=== PATIENT | female | born 1965 | race Caucasian/White ===

== ENCOUNTER → 2017-01-28 | Outpatient (CLI) | payer OTHER ==
[~2017-01-28] MED LIST: CLR10 PO; CZR50 PO; HYDC25 PO; OXYC-57 PO; POTA-335 PO
[2017-01-28 17:45] LABS: ALT/SGPT 21 U/L (12-78); AST/SGOT 14 U/L (15-37); BLOOD UREA NITROGEN 11 mg/dl (7-18); BUN/CREATININE RATIO 16.7 (10-20); CALCIUM 8.8 mg/dl (8.5-10.1); CARBON DIOXIDE 28 mmol/L (21-32); CHLORIDE 105 mmol/L (98-107); CREATININE 0.65 mg/dl (0.60-1.20); GLUCOSE 79 mg/dl (70-99); POTASSIUM 4.1 mmol/L (3.5-5.1); SODIUM 141 mmol/L (136-145)
[2017-01-28 17:56] LABS: ALB/GLOB RATIO 0.9 (0.9-2); ALKALINE PHOSPHATASE 91 U/L (45-117); CHOLESTEROL 201 mg/dl (0-200); CHOLESTEROL/HDL RATIO 3.5; HDL CHOLESTEROL 57 mg/dl; LDL CHOLESTEROL CALCULATED 117 mg/dl; TRIGLYCERIDES 134 mg/dl (0-150); VERY LOW DENSITY LIPOPROT CALC 27 mg/dl
[2017-01-28 18:18] LABS: HEMATOCRIT 41.7 % (37-47); MEAN CELL VOLUME 86.2 fL (80-100); MEAN CORPUSCULAR HEMOGLOBIN 28.9 pg (25-34); MEAN CORPUSCULAR HGB CONC 33.6 g/dl (32-36); MEAN PLATELET VOLUME 10.9 fL (7.4-10.4); PLATELET COUNT 244 K/uL (130-400); RED BLOOD COUNT 4.84 M/uL (4.2-5.4); WHITE BLOOD COUNT 8.59 K/uL (4.8-10.8)
== END | disposition home or self-care (01) ==
LOC: C.LABBFT 15:44
PROVIDERS: ATTEND Physician Assistant Medical
DX: I10 Essential (primary) hypertension (principal)

== ENCOUNTER 2020-08-07 17:22 | Inpatient (IN) ==
[2020-08-07] MEDS ORDERED: ALBUT/IPRATROP 3MG/0.5MG NEB 3 ML VIAL NEB STA (18:14)
[2020-08-07 19:17] LABS: Basophils # (auto) 0.01 K/uL (0-0.2); Basophils % (auto) 0.1 %; Eosinophils % (auto) 2.1 %; Hematocrit (blood only) 45.6 % (37-47); Hemoglobin 14.7 g/dL (12.0-16.0); Immature Granulocytes # (auto) 0.02 K/uL (0.00-0.02); Immature Granulocytes % (auto) 0.2 %; Lymphocytes # (auto) 2.57 K/uL (1.2-3.4); Lymphocytes % (auto) 27.1 %; Mean Corpuscular Hemoglobin 28.3 pg (25-34); Mean Corpuscular Hgb Conc 32.2 g/dL (32-36); Mean Corpuscular Volume 87.9 fL (80-100); Mean Platelet Volume 10.2 fL (7.4-10.4); Monocytes # (auto) 0.63 K/uL (0.11-0.59); Monocytes % (auto) 6.7 %; Neutrophils # (auto) 6.04 K/uL (1.4-6.5); Neutrophils % (auto) 63.8 %; Platelet Count 245 K/uL (130-400); RDW Coefficient of Variation 13.2 % (11.5-14.5); RDW Standard Deviation 42.5 fL (36.4-46.3); Red Blood Count 5.19 M/uL (4.2-5.4); White Blood Count 9.47 K/uL (4.8-10.8)
[2020-08-07 19:28] LABS: Partial Thromboplastin Time 27.4 Seconds (21.0-31.0); Prothrombin Time 10.6 Seconds (9.0-12.0)
[2020-08-07 19:35] LABS: Albumin Level 3.3 gm/dl (3.4-5.0); BUN Creatinine Ratio 13.9 (10-20); Blood Urea Nitrogen 9 mg/dl (7-18); Calcium 9.1 mg/dl (8.5-10.1); Carbon Dioxide 30 mmol/L (21-32); Chloride 104 mmol/L (98-107); Est GFR (African American) 114.9; Est GFR (Non-African American) 99.2; Glucose 97 mg/dl (70-99); Magnesium 2.2 mg/dl (1.8-2.4); Potassium 3.8 mmol/L (3.5-5.1); Sodium 138 mmol/L (136-145)
[2020-08-07 19:40] LABS: Alanine Aminotransferase 23 U/L (12-78); Albumin Globulin Ratio 0.7 (0.9-2); Alkaline Phosphatase 81 U/L (45-117); Aspartate Aminotransferase 11 U/L (15-37); Bilirubin,Total 0.5 mg/dl (0.2-1); Globulin 4.7 gm/dl (2.5-4.0); NT Pro B Type Natriuretic Pept 30 pg/ml (0-900); Troponin I < 0.015 ng/ml (0-0.045)
--- NOTE | 2020-08-07 20:07 | XRay Report ---
XR chest 1V portable HISTORY: Dyspnea COMPARISON: Chest 03/08/2014. FINDINGS: No pneumothorax. No pleural effusions. The heart is mildly enlarged. There is mild perihila r and interstitial vascular thickening. This may represent mild congestive change. Otherwise, no foca l lung consolidations to suggest pneumonia. IMPRESSION: Mild cardiomegaly with mild central pulmonary vascular congestion without overt edema. ACT 112: Negative or not required by law. Electronically signed by: Pop Negrete M.D. 08/07/2020 8:06 PM
[2020-08-07] MEDS ORDERED: FUROSEMIDE 40 MG/4 ML VIAL IV STA (21:09)
--- NOTE | 2020-08-08 00:42 | Emergency Department Note ---
History of Present Illness General Chief complaint: Shortness of Breath/Dyspnea Stated complaint: SOB, COUGH Source: patient, family (Daughter) and RN notes reviewed Mode of arrival: ambulatory Limitations: no limitations History of Present Illness Provider complaint: Cough, shortness of breath Maximum Pain Intensity: 6 This patient is a 55-year-old female who presents emergency department with complaints of shortness of breath. She has had increasing cough and dyspnea with exertion. Patient states she is unable to lie flat in the bed. She has not had health insurance for at least the last 3 years so has not seen her primary care physician. She has not taken any of her blood pressure medications since that time. Patient denies any history of diabetes. She denies any known Covid exposures. She denies any fever. Patient states she has a remote history of smoking but quit at least 10 years ago. Home Medications Home Medications Medication Instructions Recorded Confirmed Type acetaminophen [Tylenol Extra 1,000 mg PO Q6H PRN 08/07/20 08/07/20 History Strength] albuterol sulfate [Proventil HFA] 2 puff INHALATION ONCE 08/07/20 08/07/20 History guaifenesin [Mucinex] 1,200 mg PO BID PRN 08/07/20 08/07/20 History Allergies Allergy/AdvReac Type Severity Reaction Status Date / Time diphenhydramine Allergy Intermediate HIVES Verified 08/07/20 18:20 mold Allergy Intermediate CONGESTION Verified 08/07/20 18:20 Past Med/Surg History Medical History History of smoking 25-50 pack years Hypertension Morbid obesity Social History (Updated 08/08/20 @ 00:47 by Elaine Kohli MD) Smoking Status: Former smoker Number of Years Since Quit: 10; marital status: / Feels Safe at Home: Yes Review of Systems See HPI for pertinent positives & negatives. and A total of 10 systems reviewed and were otherwise negative Physical Exam Vital Signs Vital Signs - 24 hr 08/07/20 17:36 08/07/20 18:10 08/07/20 19:14 Temperature 37.2 C Temperature Source Oral Pulse Rate 96 H 78 Pulse Rate [Apical] 71 Pulse Rate from SpO2 Sensor 79 Respiratory Rate 22 18 16 Respiratory Effort / Characteristics Non-Labored Spontaneous Blood Pressure 187/89 H 205/112 H Blood Pressure Mean 121 171 Pulse Oximetry 97 94 96 Oxygen Delivery Method Room Air Room Air Oxygen Flow Rate Sepsis Recent Fever Within 48 Hours No Sepsis New/Unexplained Change in Mental Status No Sepsis Action Taken by Nursing No Action Required Oxygen Flow Rate - Titration Pulse Oximetry Post Tiitration 08/07/20 19:27 08/07/20 19:35 08/07/20 20:00 Temperature Temperature Source Pulse Rate 86 77 81 Pulse Rate [Apical] Pulse Rate from SpO2 Sensor 85 78 80 Respiratory Rate 17 20 21 Respiratory Effort / Characteristics Blood Pressure 196/87 H 154/95 H 151/97 H Blood Pressure Mean 125 129 112 Pulse Oximetry 94 94 97 Oxygen Delivery Method Room Air Room Air Room Air Oxygen Flow Rate Sepsis Recent Fever Within 48 Hours Sepsis New/Unexplained Change in Mental Status Sepsis Action Taken by Nursing Oxygen Flow Rate - Titration Pulse Oximetry Post Tiitration 08/07/20 20:30 08/07/20 20:36 08/07/20 21:00 Temperature Temperature Source Pulse Rate 85 79 Pulse Rate [Apical] Pulse Rate from SpO2 Sensor 84 80 Respiratory Rate 19 18 Respiratory Effort / Characteristics Blood Pressure 170/85 H Blood Pressure Mean 117 Pulse Oximetry 89 L 88 L 96 Oxygen Delivery Method Room Air Room Air Nasal Cannula Nasal Cannula Oxygen Flow Rate 0 2 Sepsis Recent Fever Within 48 Hours Sepsis New/Unexplained Change in Mental Status Sepsis Action Taken by Nursing Oxygen Flow Rate - Titration 2 Pulse Oximetry Post Tiitration 95 08/07/20 21:25 08/07/20 21:30 08/07/20 21:43 Temperature Temperature Source Pulse Rate 86 79 94 H Pulse Rate [Apical] Pulse Rate from SpO2 Sensor 86 80 94 H Respiratory Rate 24 23 26 H Respiratory Effort / Characteristics Blood Pressure 165/102 H 166/102 H 191/101 H Blood Pressure Mean 128 111 114 Pulse Oximetry 96 97 95 Oxygen Delivery Method Nasal Cannula Nasal Cannula Room Air Oxygen Flow Rate 2 2 Sepsis Recent Fever Within 48 Hours Sepsis New/Unexplained Change in Mental Status Sepsis Action Taken by Nursing Oxygen Flow Rate - Titration Pulse Oximetry Post Tiitration 08/07/20 21:49 08/07/20 22:00 08/07/20 22:30 Temperature Temperature Source Pulse Rate 86 90 Pulse Rate [Apical] Pulse Rate from SpO2 Sensor 87 90 Respiratory Rate 24 20 Respiratory Effort / Characteristics Blood Pressure Blood Pressure Mean Pulse Oximetry 96 92 95 Oxygen Delivery Method Room Air Nasal Cannula Room Air Room Air Oxygen Flow Rate 2 Sepsis Recent Fever Within 48 Hours Sepsis New/Unexplained Change in Mental Status Sepsis Action Taken by Nursing Oxygen Flow Rate - Titration 0 Pulse Oximetry Post Tiitration 94 08/07/20 23:09 08/08/20 00:00 Temperature Temperature Source Pulse Rate 87 84 Pulse Rate [Apical] Pulse Rate from SpO2 Sensor Respiratory Rate 16 16 Respiratory Effort / Characteristics Blood Pressure 191/85 H 158/83 H Blood Pressure Mean 121 97 Pulse Oximetry 94 93 Oxygen Delivery Method Room Air Room Air Oxygen Flow Rate Sepsis Recent Fever Within 48 Hours Sepsis New/Unexplained Change in Mental Status Sepsis Action Taken by Nursing Oxygen Flow Rate - Titration Pulse Oximetry Post Tiitration Vital signs reviewed. General: Chronically ill-appearing, morbidly obese 55-year-old female HEENT: No scleral icterus, PERRLA, neck supple. Atraumatic. Cardiovascular: Regular rate and rhythm, no extra sounds. Pulmonary: Clear to auscultation bilaterally, normal work of breathing. Abdomen: Soft, morbidly obese, nontender, nondistended, positive bowel sounds. Musculoskeletal: Atraumatic, 1-2+ pitting edema with dry and scaly skin to the lower extremities. Neurologic: Patient awake alert and oriented x 3 Skin: Warm, dry, no rash Course Administered Medications Discontinued Medications Albuterol (Albut/Ipratrop 3mg/0.5mg Neb 3 Ml Vial) 3 ml NEB NOW STA Stop: 08/07/20 18:15 Last Admin: 08/07/20 19:13 Dose: 3 ml Documented by: [id number] Furosemide (Furosemide 40 Mg/4 Ml Vial) 40 mg IV NOW STA Stop: 08/07/20 21:10 Last Admin: 08/07/20 21:17 Dose: 40 mg Documented by: [id number] Medical Decision Making Differential Diagnosis Differential diagnosis: reactive airway disease, pneumonia, pneumothorax, COPD, CHF, infections, cardiac ischemia, pulmonary embolism, musculoskeletal, gastrointestinal, as well as other pathologies. Medical Records Attestation: I reviewed the patient's medical records. Home Medications Current Medication List: was personally reviewed by me Laboratory Data Attestation: I reviewed the patient's lab results. Result diagrams: 08/07/20 19:00 08/07/20 19:00 Lab Results 08/07/20 08/07/20 08/07/20 Range/Units 19:00 19:00 19:00 WBC 9.47 (4.8-10.8) K/uL RBC 5.19 (4.2-5.4) M/uL Hgb 14.7 (12.0-16.0) g/dL Hct 45.6 (37-47) % MCV 87.9 (80-100) fL MCH 28.3 (25-34) pg MCHC 32.2 (32-36) g/dL RDW Std Deviation 42.5 (36.4-46.3) fL RDW Coeff of Anthony 13.2 (11.5-14.5) % Plt Count 245 (130-400) K/uL MPV 10.2 (7.4-10.4) fL Immature Gran % (Auto) 0.2 % Neut % (Auto) 63.8 % Lymph % (Auto) 27.1 % [place] % (Auto) 6.7 % Eos % (Auto) 2.1 % Baso % (Auto) 0.1 % Neut # (Auto) 6.04 (1.4-6.5) K/uL Lymph # (Auto) 2.57 (1.2-3.4) K/uL [place] # (Auto) 0.63 H (0.11-0.59) K/uL Eos # (Auto) 0.20 (0-0.5) K/uL Baso # (Auto) 0.01 (0-0.2) K/uL Immature Gran # (Auto) 0.02 (0.00-0.02) K/uL PT 10.6 (9.0-12.0) Seconds INR 1.0 (0.9-1.1) APTT 27.4 (21.0-31.0) Seconds PTT Ratio 1.0 Sodium (136-145) mmol/L Potassium (3.5-5.1) mmol/L Chloride (98-107) mmol/L Carbon Dioxide (21-32) mmol/L Anion Gap (3-11) BUN (7-18) mg/dl Creatinine (0.6-1.2) mg/dl Est Cr Clr Drug Dosing Est GFR ( Amer) Est GFR (Non-Af Amer) BUN/Creatinine Ratio (10-20) Glucose (70-99) mg/dl Lactate 1.0 (0.4-2.0) mmol/L Calcium (8.5-10.1) mg/dl Magnesium (1.8-2.4) mg/dl Total Bilirubin (0.2-1) mg/dl AST (15-37) U/L ALT (12-78) U/L Alkaline Phosphatase (45-117) U/L Troponin I (0-0.045) ng/ml NT-Pro-B Natriuret Pep (0-900) pg/ml Total Protein (6.4-8.2) gm/dl Albumin (3.4-5.0) gm/dl Globulin (2.5-4.0) gm/dl Albumin/Globulin Ratio (0.9-2) COVID-19 Eval Order COVID-19 PCR (Negative) 08/07/20 08/07/20 08/07/20 Range/Units 19:00 19:26 19:26 WBC (4.8-10.8) K/uL RBC (4.2-5.4) M/uL Hgb (12.0-16.0) g/dL Hct (37-47) % MCV (80-100) fL MCH (25-34) pg MCHC (32-36) g/dL RDW Std Deviation (36.4-46.3) fL RDW Coeff of Anthony (11.5-14.5) % Plt Count (130-400) K/uL MPV (7.4-10.4) fL Immature Gran % (Auto) % Neut % (Auto) % Lymph % (Auto) % [place] % (Auto) % Eos % (Auto) % Baso % (Auto) % Neut # (Auto) (1.4-6.5) K/uL Lymph # (Auto) (1.2-3.4) K/uL [place] # (Auto) (0.11-0.59) K/uL Eos # (Auto) (0-0.5) K/uL Baso # (Auto) (0-0.2) K/uL Immature Gran # (Auto) (0.00-0.02) K/uL PT (9.0-12.0) Seconds INR (0.9-1.1) APTT (21.0-31.0) Seconds PTT Ratio Sodium 138 (136-145) mmol/L Potassium 3.8 (3.5-5.1) mmol/L Chloride 104 (98-107) mmol/L Carbon Dioxide 30 (21-32) mmol/L Anion Gap 4.0 (3-11) BUN 9 (7-18) mg/dl Creatinine 0.68 (0.6-1.2) mg/dl Est Cr Clr Drug Dosing Not Reportable Est GFR ( Amer) 114.9 Est GFR (Non-Af Amer) 99.2 BUN/Creatinine Ratio 13.9 (10-20) Glucose 97 (70-99) mg/dl Lactate (0.4-2.0) mmol/L Calcium 9.1 (8.5-10.1) mg/dl Magnesium 2.2 (1.8-2.4) mg/dl Total Bilirubin 0.5 (0.2-1) mg/dl AST 11 L (15-37) U/L ALT 23 (12-78) U/L Alkaline Phosphatase 81 (45-117) U/L Troponin I < 0.015 (0-0.045) ng/ml NT-Pro-B Natriuret Pep 30 (0-900) pg/ml Total Protein 8.0 (6.4-8.2) gm/dl Albumin 3.3 L (3.4-5.0) gm/dl Globulin 4.7 H (2.5-4.0) gm/dl Albumin/Globulin Ratio 0.7 L (0.9-2) COVID-19 Eval Order Covid19 Done at [facility] COVID-19 PCR NEGATIVE (Negative) Imaging Data Radiologist's Impression: XR chest 1V portable HISTORY: Dyspnea COMPARISON: Chest 03/08/2014. FINDINGS: No pneumothorax. No pleural effusions. The heart is mildly enlarged. There is mild perihilar and interstitial vascular thickening. This may represent mild congestive change. Otherwise, no focal lung consolidations to suggest pneumonia. IMPRESSION: Mild cardiomegaly with mild central pulmonary vascular congestion without overt edema. ACT 112: Negative or not required by law. Electronically signed by: Pop Negrete M.D. 08/07/2020 8:06 PM Dictated: 08/07/202004 Transcribed: 08/07/202004 ECG Data Attestation: I personally reviewed and interpreted this ECG as follows: Indication: + SOB/dyspnea Rate (beats per minute): 73 Rhythm: + normal sinus ECG Intervals/blocks: + Normal QT-c ECG [place]: + Normal ECG ST segments: + Normal ST segments ECG Findings: no PACs and no PVCs Blood Pressure Blood Pressure Findings: Elevated blood pressure Blood Pressure Disposition: further management by hospitalist MDM Narrative This patient was evaluated and appeared to be in no significant distress. IV access was obtained and laboratory work was drawn. An order for cardiac monitoring was placed and the patient was found to be in a normal sinus rhythm at 78 bpm. Patient is noted to be markedly hypertensive. Chest x-ray was performed and reveals pulmonary vascular congestion. Patient's blood pressure improved somewhat just with rest. The patient was given 40 mg of IV Lasix and she was able to begin diuresing. Symptomatically she states she is feeling much better. Patient's cardiac enzymes are negative. Covid swab was obtained and is negative. EKG reveals no evidence of acute ischemia. Given the patient's morbid obesity, marked hypertension with dyspnea, apparent fluid overload and no established primary care, she will be evaluated by the hospitalist service for further management. Patient and family are aware of the plan and agree. Impression & Plan Hypertensive urgency, Morbid obesity, Fluid overload Discharge Plan Visit Data Chief Complaint: Shortness of Breath/Dyspnea Stated Complaint: SOB, COUGH ED Provider: Elaine Kohli Discharge Problem: Hypertensive urgency, Morbid obesity, Fluid overload Patient Disposition: Admitted As Inpatient Discharge Instructions Interventions: ED Discharge Assessment Last Done: 08/08/20 00:10 Discharge Problem: Fluid overload Qualifiers: Hypervolemia type: other Qualified Code(s): E87.79 - Other fluid overload
[2020-08-08] MEDS ORDERED: ACETAMINOPHEN 500 MG TAB PO PRN (00:46)
[2020-08-08] MEDS ORDERED: ONDANSETRON INJ 2 MG/ML 2 ML VIAL IV PRN (00:46)
[2020-08-08] MEDS: ACETAMINOPHEN 325 MG TAB PO PRN ×4 (01:09→23:30)
[2020-08-08 02:11] LABS: Appearance Urine Clear (Clear); Bilirubin Urine Negative (Negative); Blood Urine Negative (Negative); Color Urine Yellow; Glucose Urine UA Negative (Negative); Ketones Urine Negative (Negative); Leukocyte Esterase Urine Negative (Negative); Nitrite Urine Negative (Negative); Protein Urine Negative (Negative); Specific Gravity Urine 1.011 (1.000-1.030); Urobilinogen Urine Negative (Negative)
--- NOTE | 2020-08-08 04:34 | History & Physical Report ---
Date of Service August 07, 2020 Assessment & Plan (1) Hypertension: Patient with HTN - currently not on medications due to lack of insurance. No evidence of end organ damage or hypertensive crisis at present -BP currently improved to 146/85 with rest -Start HCTZ 25mg po daily. Patient will most likely need a second agent. HCTZ 25mg tablets currently on [facility] $4 prescription list - as is Losartan/HCTZ if needed. -Case management to assist with obtaining insurance coverage -Patient will need outpatient followup Present on Admission?: Yes (2) Shortness of breath: Patient with adequate oxygenation on room air at present. -Supplemental O2 as needed -Check 2D echo Present on Admission?: Yes (3) Fluid overload: As above. Patient given Lasix with diuresis -Monitor fluid status -Echo as above F/E/N - Diuresis with Lasix. Electrolytes WNL. Heart healthy diet as tolerated Ppx - Low risk for DVT Code -Full Disp - Observation to medical Will check HgbAIC and Lipid panel while patient in hospital for additional risk stratification and screening. Admission and Anticipated Discharge Date Admission Date: August 07, 2020 History of Present Illness Chief Complaint: HTN Primary Care Provider: NO PCP Ruddy Blankenship is a 55yo C female with history of HTN presenting with SOB. Patient was being seen by a PCP approximately 3 years ago and was being treated for her HTN with Losartan and HCTZ + Klor-Con. She reports that her BPs were well managed on that regimen. Unfortunately she lost her health insurance appx 3 years ago after her significant other . She has been unable to get medications for her BP since. She reports 3 days of progressive SOB and VAZQUEZ as well as some mild chest discomfort. No additional complaints at this time. She denies fevers/chills/nausea/vomiting/diarrhea/constipation. She denies headache/visual changes. No chest discomfort currently. Denies numbness/tingling/weakness. No concerns for Covid-19 exposure. In the ER she was briefly hypoxic to 88% on room air requiring supplemental O2 Er Course: Albuterol. Lasix Allergies Allergy/AdvReac Type Severity Reaction Status Date / Time diphenhydramine Allergy Intermediate HIVES Verified 08/07/20 18:20 mold Allergy Intermediate CONGESTION Verified 08/07/20 18:20 Home Medications Home Medications Medication Instructions Recorded Confirmed Type acetaminophen [Tylenol Extra 1,000 mg PO Q6H PRN 10/19/20 10/19/20 History Strength] albuterol sulfate [Proventil HFA] 2 puff INHALATION ONCE 08/07/20 08/07/20 History guaifenesin [Mucinex] 1,200 mg PO BID PRN 08/07/20 08/07/20 History Past Med/Surg History Medical History (Updated 08/08/20 @ 04:46 by Carie Ponce DO) Depression Ectopic History of smoking 25-50 pack years Hypertension Morbid obesity Family History (Updated 08/08/20 @ 04:39 by Carie Ponce DO) Other Diabetes Hypertension Social History (Updated 08/08/20 @ 00:47 by Elaine Kohli MD) Smoking Status: Former smoker Number of Years Since Quit: 10; Second Hand Exposure: No; Do You Dip or Chew Tobacco: No; Tobacco Cessation Education Requested by Patient: No Hx Substance Use: No Preferred Language: French [employer] Required: No Beliefs That Will Affect Care: None marital status: / Current Living Situation: Family Current Living Situation Comment: Lives with oldest son, and youngest daughter Other Information That Helps Us Care for You: No Feels Safe at Home: Yes Safety Concerns: Feels Safe At This Time Assistive Devices: Cane Assistive Devices Comment: wiping aide for pericare Review of Systems Review of Systems: All systems reviewed & are unremarkable except as noted in HPI & below Physical Exam Physical Exam: General: patient resting comfortably, NAD, non-toxic in appearance, AA&O x 4 Skin: warm, dry, intact, no rashes or lesions HEENT: NC/AT, PERRL, EOMI, anicteric sclera, conjunctiva without injection, external ear normal to inspection and nontender, nares patent, moist mucus membranes, dentition intact, no oropharyngeal lesions, neck supple, trachea midline, no LAD, no thyromegaly, no JVD Heart: +S1/S2, regular, no m/r/g Lungs: diminished breath sounds, equal air entry bilaterally, +bibasilar crack les Abd: +BS, soft, NT/ND, no masses/organomegaly/ascites Ext: warm, 2+ pulses in UE/LE bilaterally, no clubbing/cyanosis or edema Neuro: nonfocal, patient AA&O x 4, speech intact, no facial droop, moving all extremities on command with equal strength 5/5 Results & Data Results & Data ([facility]) Vital Signs (Past 12 Hours) Vital Signs Temp Pulse Pulse Pulse Resp BP BP 08/08/20 04:16 36.6 C 89 20 146/85 H 08/08/20 00:48 36.6 C 87 18 170/97 H 08/08/20 00:00 84 16 158/83 H 08/07/20 23:09 87 16 191/85 H 08/07/20 22:30 90 20 08/07/20 22:00 86 24 08/07/20 21:49 08/07/20 21:43 94 H 26 H 191/101 H 08/07/20 21:30 79 23 166/102 H 08/07/20 21:25 86 24 165/102 H 08/07/20 21:00 79 18 08/07/20 20:36 08/07/20 20:30 85 19 170/85 H 08/07/20 20:00 81 21 151/97 H 08/07/20 19:35 77 20 154/95 H 08/07/20 19:27 86 17 196/87 H 08/07/20 19:14 71 16 08/07/20 18:10 78 18 205/112 H 08/07/20 17:36 37.2 C 96 H 22 187/89 H Pulse Ox 08/08/20 04:16 95 08/08/20 00:48 94 08/08/20 00:00 93 08/07/20 23:09 94 08/07/20 22:30 95 08/07/20 22:00 92 08/07/20 21:49 96 08/07/20 21:43 95 08/07/20 21:30 97 08/07/20 21:25 96 08/07/20 21:00 96 08/07/20 20:36 88 L 08/07/20 20:30 89 L 08/07/20 20:00 97 08/07/20 19:35 94 08/07/20 19:27 94 08/07/20 19:14 96 08/07/20 18:10 94 08/07/20 17:36 97 Laboratory Results Lab Results 08/07/20 08/07/20 08/07/20 Range/Units 19:00 19:00 19:00 WBC 9.47 (4.8-10.8) K/uL RBC 5.19 (4.2-5.4) M/uL Hgb 14.7 (12.0-16.0) g/dL Hct 45.6 (37-47) % MCV 87.9 (80-100) fL MCH 28.3 (25-34) pg MCHC 32.2 (32-36) g/dL RDW Std Deviation 42.5 (36.4-46.3) fL RDW Coeff of Anthony 13.2 (11.5-14.5) % Plt Count 245 (130-400) K/uL MPV 10.2 (7.4-10.4) fL Immature Gran % (Auto) 0.2 % Neut % (Auto) 63.8 % Lymph % (Auto) 27.1 % Rooks % (Auto) 6.7 % Eos % (Auto) 2.1 % Baso % (Auto) 0.1 % Neut # (Auto) 6.04 (1.4-6.5) K/uL Lymph # (Auto) 2.57 (1.2-3.4) K/uL [place] # (Auto) 0.63 H (0.11-0.59) K/uL Eos # (Auto) 0.20 (0-0.5) K/uL Baso # (Auto) 0.01 (0-0.2) K/uL Immature Gran # (Auto) 0.02 (0.00-0.02) K/uL PT 10.6 (9.0-12.0) Seconds INR 1.0 (0.9-1.1) APTT 27.4 (21.0-31.0) Seconds PTT Ratio 1.0 Sodium (136-145) mmol/L Potassium (3.5-5.1) mmol/L Chloride (98-107) mmol/L Carbon Dioxide (21-32) mmol/L Anion Gap (3-11) BUN (7-18) mg/dl Creatinine (0.6-1.2) mg/dl Est Cr Clr Drug Dosing Est GFR ( Amer) Est GFR (Non-Af Amer) BUN/Creatinine Ratio (10-20) Glucose (70-99) mg/dl Lactate 1.0 (0.4-2.0) mmol/L Calcium (8.5-10.1) mg/dl Magnesium (1.8-2.4) mg/dl Total Bilirubin (0.2-1) mg/dl AST (15-37) U/L ALT (12-78) U/L Alkaline Phosphatase (45-117) U/L Troponin I (0-0.045) ng/ml NT-Pro-B Natriuret Pep (0-900) pg/ml Total Protein (6.4-8.2) gm/dl Albumin (3.4-5.0) gm/dl Globulin (2.5-4.0) gm/dl Albumin/Globulin Ratio (0.9-2) Urine Color Urine Appearance (Clear) Urine pH (4.5-7.5) Ur Specific [place] (1.000-1.030) Urine Protein (Negative) Urine Glucose (UA) (Negative) Urine Ketones (Negative) Urine Blood (Negative) Urine Nitrite (Negative) Urine Bilirubin (Negative) Urine Urobilinogen (Negative) Ur Leukocyte Esterase (Negative) COVID-19 Eval Order COVID-19 PCR (Negative) 08/07/20 08/07/20 08/07/20 Range/Units 19:00 19:26 19:26 WBC (4.8-10.8) K/uL RBC (4.2-5.4) M/uL Hgb (12.0-16.0) g/dL Hct (37-47) % MCV (80-100) fL MCH (25-34) pg MCHC (32-36) g/dL RDW Std Deviation (36.4-46.3) fL RDW Coeff of Anthony (11.5-14.5) % Plt Count (130-400) K/uL MPV (7.4-10.4) fL Immature Gran % (Auto) % Neut % (Auto) % Lymph % (Auto) % [place] % (Auto) % Eos % (Auto) % Baso % (Auto) % Neut # (Auto) (1.4-6.5) K/uL Lymph # (Auto) (1.2-3.4) K/uL [place] # (Auto) (0.11-0.59) K/uL Eos # (Auto) (0-0.5) K/uL Baso # (Auto) (0-0.2) K/uL Immature Gran # (Auto) (0.00-0.02) K/uL PT (9.0-12.0) Seconds INR (0.9-1.1) APTT (21.0-31.0) Seconds PTT Ratio Sodium 138 (136-145) mmol/L Potassium 3.8 (3.5-5.1) mmol/L Chloride 104 (98-107) mmol/L Carbon Dioxide 30 (21-32) mmol/L Anion Gap 4.0 (3-11) BUN 9 (7-18) mg/dl Creatinine 0.68 (0.6-1.2) mg/dl Est Cr Clr Drug Dosing Not Reportable Est GFR ( Amer) 114.9 Est GFR (Non-Af Amer) 99.2 BUN/Creatinine Ratio 13.9 (10-20) Glucose 97 (70-99) mg/dl Lactate (0.4-2.0) mmol/L Calcium 9.1 (8.5-10.1) mg/dl Magnesium 2.2 (1.8-2.4) mg/dl Total Bilirubin 0.5 (0.2-1) mg/dl AST 11 L (15-37) U/L ALT 23 (12-78) U/L Alkaline Phosphatase 81 (45-117) U/L Troponin I < 0.015 (0-0.045) ng/ml NT-Pro-B Natriuret Pep 30 (0-900) pg/ml Total Protein 8.0 (6.4-8.2) gm/dl Albumin 3.3 L (3.4-5.0) gm/dl Globulin 4.7 H (2.5-4.0) gm/dl Albumin/Globulin Ratio 0.7 L (0.9-2) Urine Color Urine Appearance (Clear) Urine pH (4.5-7.5) Ur Specific [place] (1.000-1.030) Urine Protein (Negative) Urine Glucose (UA) (Negative) Urine Ketones (Negative) Urine Blood (Negative) Urine Nitrite (Negative) Urine Bilirubin (Negative) Urine Urobilinogen (Negative) Ur Leukocyte Esterase (Negative) COVID-19 Eval Order Covid19 Done at [facility] COVID-19 PCR NEGATIVE (Negative) 08/08/20 Range/Units 01:55 WBC (4.8-10.8) K/uL RBC (4.2-5.4) M/uL Hgb (12.0-16.0) g/dL Hct (37-47) % MCV (80-100) fL MCH (25-34) pg MCHC (32-36) g/dL RDW Std Deviation (36.4-46.3) fL RDW Coeff of Anthony (11.5-14.5) % Plt Count (130-400) K/uL MPV (7.4-10.4) fL Immature Gran % (Auto) % Neut % (Auto) % Lymph % (Auto) % [place] % (Auto) % Eos % (Auto) % Baso % (Auto) % Neut # (Auto) (1.4-6.5) K/uL Lymph # (Auto) (1.2-3.4) K/uL [place] # (Auto) (0.11-0.59) K/uL Eos # (Auto) (0-0.5) K/uL Baso # (Auto) (0-0.2) K/uL Immature Gran # (Auto) (0.00-0.02) K/uL PT (9.0-12.0) Seconds INR (0.9-1.1) APTT (21.0-31.0) Seconds PTT Ratio Sodium (136-145) mmol/L Potassium (3.5-5.1) mmol/L Chloride (98-107) mmol/L Carbon Dioxide (21-32) mmol/L Anion Gap (3-11) BUN (7-18) mg/dl Creatinine (0.6-1.2) mg/dl Est Cr Clr Drug Dosing Est GFR ( Amer) Est GFR (Non-Af Amer) BUN/Creatinine Ratio (10-20) Glucose (70-99) mg/dl Lactate (0.4-2.0) mmol/L Calcium (8.5-10.1) mg/dl Magnesium (1.8-2.4) mg/dl Total Bilirubin (0.2-1) mg/dl AST (15-37) U/L ALT (12-78) U/L Alkaline Phosphatase (45-117) U/L Troponin I (0-0.045) ng/ml NT-Pro-B Natriuret Pep (0-900) pg/ml Total Protein (6.4-8.2) gm/dl Albumin (3.4-5.0) gm/dl Globulin (2.5-4.0) gm/dl Albumin/Globulin Ratio (0.9-2) Urine Color Yellow Urine Appearance Clear (Clear) Urine pH 5.0 (4.5-7.5) Ur Specific [place] 1.011 (1.000-1.030) Urine Protein Negative (Negative) Urine Glucose (UA) Negative (Negative) Urine Ketones Negative (Negative) Urine Blood Negative (Negative) Urine Nitrite Negative (Negative) Urine Bilirubin Negative (Negative) Urine Urobilinogen Negative (Negative) Ur Leukocyte Esterase Negative (Negative) COVID-19 Eval Order COVID-19 PCR (Negative) Diagnostic Findings XR chest 1V portable HISTORY: Dyspnea COMPARISON: Chest 03/08/2014. FINDINGS: No pneumothorax. No pleural effusions. The heart is mildly enlarged. There is mild perihilar and interstitial vascular thickening. This may represent mild congestive change. Otherwise, no focal lung consolidations to suggest pneumonia. IMPRESSION: Mild cardiomegaly with mild central pulmonary vascular congestion without overt edema. ACT 112: Negative or not required by law. Electronically signed by: Pop Negrete M.D. 08/07/2020 8:06 PM ECG Additional Comments: NSR at 73, normal axis, no acute ischemic changes Code Status & VTE Plan Code Status FULL PG Care Time/CCT Total # of Minutes Spent Total Time Spent with Patient: Total time spent is greater than 50% in coordination of care (as documented) at patient's floor/unit and/or counseling patient: Coding Level of Care Code 58775 OBS Care - Level 2 Diagnoses Hypertension I10 Hypertension type: essential hypertension Shortness of breath R06.02 Fluid overload E87.79 Hypervolemia type: other (1) Hypertension Hypertension type: essential hypertension Qualified Code(s): I10 - Essential (primary) hypertension (2) Fluid overload Hypervolemia type: other Qualified Code(s): E87.79 - Other fluid overload
[2020-08-08 06:21] LABS: Calcium 8.9 mg/dl (8.5-10.1); Creatinine Clr Calc Pharmacy 133.1 ml/min; Est GFR (African American) 114.9; Est GFR (Non-African American) 99.2; Potassium 3.3 mmol/L (3.5-5.1)
[2020-08-08 08:05] LABS: Estimated Average Glucose 131 mg/dl; Hemoglobin A1C 6.2 % (4.5-5.6)
[2020-08-08] MEDS ORDERED: POTASSIUM CHLORIDE 20 MEQ TABCR PO STA (08:11)
[2020-08-08] MEDS: hydroCHLOROthiazide 25 MG TAB PO SCH (08:14)
--- NOTE | 2020-08-08 09:46 | Electrocardiogram Report ---
Test Reason : Blood Pressure : / mmHG Vent. Rate : 073 BPM Atrial Rate : 073 BPM P-R Int : 166 ms QRS Dur : 082 ms QT Int : 404 ms P-R-T Axes : 043 014 045 degrees QTc Int : 445 ms Poor data quality, interpretation may be adversely affected Normal sinus rhythm Normal ECG When compared with ECG of 15-DEC-2010 21:14, No significant change was found Confirmed by Tanner Hernandez [id number]) on 08/08/2020 9:46:00 AM Referred By: REFERRED SELF Confirmed By:Tanner Hernandez
--- NOTE | 2020-08-08 12:49 | XCELERA ---
[id number]
[2020-08-08] MEDS ORDERED: hydrALAZINE HCL 20 MG/ML VIAL IV PRN (14:05)
[2020-08-08 14:35] LABS: D Dimer 530 ug/L FEU (0-500)
[2020-08-08] MEDS: LOSARTAN POTASSIUM 25 MG TAB PO SCH (14:52)
--- NOTE | 2020-08-08 16:32 | Hospitalist Progress Note ---
Date of Service August 08, 2020 Assessment & Plan (1) Hypertension: * Patient with HTN - currently not on medications due to lack of insurance. No evidence of end organ damage or hypertensive crisis at present * Started back on HCTZ 25mg daily with BP improved to 146/85 this morning but back up to 164/113 this afternoon * Ordered losartan 25mg PO --> BP improved to 155/99 * May need to utilize low dose lasix given edema/symptoms of CHF despite no significant reduction in EF on ECHO * CM assisting with insurance coverage -- will need f/u with [facility] * Lipid panel wnl (2) Shortness of breath: * 88% on admission, requiring supplemental O2. Trop <0.015. EKG without issue * CXR with cardiomegaly with mild vascular congestion * Given lasix 40mg IV x 1 in ER * Currently 92% on RA * ECHO with LV systolic function normal, EF 55/60%, no wma. * Supplemental O2 as needed * Ddimer >500 * CT Chest pending to r/o PE * BCx on admission 10/21 with gram positive cocci clusters, likely contaminant but will follow * Repeat pending * Sputum culture pending * Has been afebrile (3) Acute respiratory failure with hypoxia: Presented with hypoxia with pulse ox 89% requiring oxygen CT angiogram negative for central PE, and with stable groundglass opacities Consider outpatient pulmonology referral Is now weaned off oxygen to room air after 1 dose of Lasix in the ER CHF does not seem likely as proBNP was normal, preserved EF on echocardiogram Could be related to infectious process Is not on antibiotics at this time, remains afebrile Continue to monitor (4) Fluid overload: * As above. Patient given Lasix with diuresis * Monitor fluid status * Echo as above (5) Pre-diabetes: * A1c checked for risk stratification, 6.2 * Counseled -- rec diet/exercise * Follow up outpatient with PCP once established again with [facility] (6) Obstructive sleep apnea: * Previous sleep study Aug 2019 with mild sleep apnea/hypopnea with a respiratory event index of 12.7 with significant nocturnal hypoxemia. * Recommended f/u sleep study with CPAP or use of auto CPAP but patient did not ever follow up * Will order overnight pulse ox for tonight for supplemental O2 HS but will need follow up outpatient (7) Hypokalemia: * K 3.3 -- secondary to HCTZ use. Ordered 20meq PO * BMP in AM * Also -- started on losartan and may not need continued supplementation Admission and Anticipated Discharge Date Admission Date: August 07, 2020 Supervising Physician Co-Signing Physician Notes PA Supervision Note: I did not personally see or examine the patient today, but I verified all lama points of MANDY Mejia's assessment and plan with the following exceptions/additions: None Subjective Patient evaluated this afternoon. BPs better controlled this morning but back up with diastolic BP >100. She states she does have a bit of a headache but she chronically has a headache. CM sending forms to her house for medical assistance. Discussed [facility] pricing for BP medications as they are on 4$ list and affordable without insurance. Patient did have follow up with [facility] last year but issues with arranging appointments to coordinate with her daughter. This is after having done a sleep study outpatient but she was unaware of findings as she did not follow up. Discussed untreated SHIRA contributing to HTN as well as other complications. She states she has been having a continued cough but had not been given a sputum cup and is unable to describe sputum color/amount/consistency. She notes loosening of mucus since admission and she has been clearing much up and will alert nursing with next sputum. She notes this cough is worse at night the past several days and felt as if "I didn't have enough pillows to prop myself up with". Discussed ECHO findings as she has not had hx of CHF. EF not overly impressive. Shortness of breath not improved with sitting forward although is noted to be worse with lying flat. She denies having calf pain prior or recent trauma, as well as recent immobilization or history of clotting disorder or DVT/PE in the past. Denies fever or chills, but states she has had bacterial and viral meningitis in the past and has never had a fever with either of those infections. She does endorse night sweats at times but no unplanned weight loss. She thought she was being hospitalized for pneumonia initially. Discussed obtaining ddimer to r/o PE and if possible will follow up with CT. Questions/concerns addressed at this time. Denies chest pain, shortness of breath, abdominal pain, n/v/d/c/dysuria at this time. Review of Systems Review of Systems: All systems reviewed & are unremarkable except as noted in HPI & below Physical Exam Constitutional: WD/WN, vitals as above + obese; no acute distress Eyes: + anicteric sclerae and PERRL ENMT: mmm Neck: normal visual inspection Respiratory: normal respiratory effort, lungs clear to auscultation Auscultation: no crackles and no wheezes Cardiovascular: Rate/Rhythm: regular rate and regular rhythm Heart Sounds: no gallop, no murmur and no cardiac rub Extremities: + edema (lymphedema "best it has been " per patient) Gastrointestinal (Abdomen): normal bowel sounds, soft, nontender, no hepatosplenomegaly Musculoskeletal: no cyanosis or clubbing, extremities motor strength 5/5 Skin: warm, moist Neurologic: PERRL, EOMI, accommodation nl, no face palsy, no dysarthria Psychiatric: A+Ox3, euthymic affect Lymphatic: no cervical or axillary lymphadenopathy Results & Data Results & Data ([facility]) Vital Signs (Past 12 Hours) Vital Signs Temp Pulse Resp BP Pulse Ox 08/08/20 15:29 37.1 C 78 16 155/99 H 92 08/08/20 11:44 163/113 H 08/08/20 08:14 36.7 C 83 20 174/90 H 94 08/08/20 04:16 36.6 C 89 20 146/85 H 95 Laboratory Results 08/08/20 08/08/20 08/08/20 Range/Units 13:54 04:58 04:58 WBC (4.8-10.8) K/uL RBC (4.2-5.4) M/uL Hgb (12.0-16.0) g/dL Hct (37-47) % MCV (80-100) fL MCH (25-34) pg MCHC (32-36) g/dL RDW Std Deviation (36.4-46.3) fL RDW Coeff of Anthony (11.5-14.5) % Plt Count (130-400) K/uL MPV (7.4-10.4) fL Immature Gran % (Auto) % Neut % (Auto) % Lymph % (Auto) % [place] % (Auto) % Eos % (Auto) % Baso % (Auto) % Neut # (Auto) (1.4-6.5) K/uL Lymph # (Auto) (1.2-3.4) K/uL [place] # (Auto) (0.11-0.59) K/uL Eos # (Auto) (0-0.5) K/uL Baso # (Auto) (0-0.2) K/uL Immature Gran # (Auto) (0.00-0.02) K/uL PT (9.0-12.0) Seconds INR (0.9-1.1) APTT (21.0-31.0) Seconds PTT Ratio D-Dimer 530 H* (0-500) ug/L FEU Sodium (136-145) mmol/L Potassium (3.5-5.1) mmol/L Chloride (98-107) mmol/L Carbon Dioxide (21-32) mmol/L Anion Gap (3-11) BUN (7-18) mg/dl Creatinine (0.6-1.2) mg/dl Est Cr Clr Drug Dosing Est GFR ( Amer) Est GFR (Non-Af Amer) BUN/Creatinine Ratio (10-20) Glucose (70-99) mg/dl Estimat Average Glucose 131 mg/dl Hemoglobin A1c 6.2 H (4.5-5.6) % Lactate (0.4-2.0) mmol/L Calcium (8.5-10.1) mg/dl Magnesium (1.8-2.4) mg/dl Total Bilirubin (0.2-1) mg/dl AST (15-37) U/L ALT (12-78) U/L Alkaline Phosphatase (45-117) U/L Troponin I (0-0.045) ng/ml NT-Pro-B Natriuret Pep (0-900) pg/ml Total Protein (6.4-8.2) gm/dl Albumin (3.4-5.0) gm/dl Globulin (2.5-4.0) gm/dl Albumin/Globulin Ratio (0.9-2) Triglycerides (0-150) mg/dl Cholesterol (0-200) mg/dl LDL Cholesterol, Calc mg/dl VLDL Cholesterol, Calc mg/dl HDL Cholesterol mg/dl Cholesterol/HDL Ratio Urine Color Urine Appearance (Clear) Urine pH (4.5-7.5) Ur Specific [place] (1.000-1.030) Urine Protein (Negative) Urine Glucose (UA) (Negative) Urine Ketones (Negative) Urine Blood (Negative) Urine Nitrite (Negative) Urine Bilirubin (Negative) Urine Urobilinogen (Negative) Ur Leukocyte Esterase (Negative) COVID-19 Eval Order COVID-19 PCR (Negative) Hepatitis C Ab Screen Neg (Neg) 08/08/20 08/08/20 08/07/20 Range/Units 04:58 01:55 19:26 WBC (4.8-10.8) K/uL RBC (4.2-5.4) M/uL Hgb (12.0-16.0) g/dL Hct (37-47) % MCV (80-100) fL MCH (25-34) pg MCHC (32-36) g/dL RDW Std Deviation (36.4-46.3) fL RDW Coeff of Anthony (11.5-14.5) % Plt Count (130-400) K/uL MPV (7.4-10.4) fL Immature Gran % (Auto) % Neut % (Auto) % Lymph % (Auto) % [place] % (Auto) % Eos % (Auto) % Baso % (Auto) % Neut # (Auto) (1.4-6.5) K/uL Lymph # (Auto) (1.2-3.4) K/uL [place] # (Auto) (0.11-0.59) K/uL Eos # (Auto) (0-0.5) K/uL Baso # (Auto) (0-0.2) K/uL Immature Gran # (Auto) (0.00-0.02) K/uL PT (9.0-12.0) Seconds INR (0.9-1.1) APTT (21.0-31.0) Seconds PTT Ratio D-Dimer (0-500) ug/L FEU Sodium 139 (136-145) mmol/L Potassium 3.3 L (3.5-5.1) mmol/L Chloride 104 (98-107) mmol/L Carbon Dioxide 29 (21-32) mmol/L Anion Gap 6.0 (3-11) BUN 14 D (7-18) mg/dl Creatinine 0.68 (0.6-1.2) mg/dl Est Cr Clr Drug Dosing 133.1 Est GFR ( Amer) 114.9 Est GFR (Non-Af Amer) 99.2 BUN/Creatinine Ratio 21.0 H (10-20) Glucose 97 (70-99) mg/dl Estimat Average Glucose mg/dl Hemoglobin A1c (4.5-5.6) % Lactate (0.4-2.0) mmol/L Calcium 8.9 (8.5-10.1) mg/dl Magnesium (1.8-2.4) mg/dl Total Bilirubin (0.2-1) mg/dl AST (15-37) U/L ALT (12-78) U/L Alkaline Phosphatase (45-117) U/L Troponin I (0-0.045) ng/ml NT-Pro-B Natriuret Pep (0-900) pg/ml Total Protein (6.4-8.2) gm/dl Albumin (3.4-5.0) gm/dl Globulin (2.5-4.0) gm/dl Albumin/Globulin Ratio (0.9-2) Triglycerides 96 (0-150) mg/dl Cholesterol 179 (0-200) mg/dl LDL Cholesterol, Calc 108 mg/dl VLDL Cholesterol, Calc 19 mg/dl HDL Cholesterol 52 mg/dl Cholesterol/HDL Ratio 3 Urine Color Yellow Urine Appearance Clear (Clear) Urine pH 5.0 (4.5-7.5) Ur Specific [place] 1.011 (1.000-1.030) Urine Protein Negative (Negative) Urine Glucose (UA) Negative (Negative) Urine Ketones Negative (Negative) Urine Blood Negative (Negative) Urine Nitrite Negative (Negative) Urine Bilirubin Negative (Negative) Urine Urobilinogen Negative (Negative) Ur Leukocyte Esterase Negative (Negative) COVID-19 Eval Order COVID-19 PCR NEGATIVE (Negative) Hepatitis C Ab Screen (Neg) 08/07/20 08/07/20 08/07/20 Range/Units 19:26 19:00 19:00 WBC (4.8-10.8) K/uL RBC (4.2-5.4) M/uL Hgb (12.0-16.0) g/dL Hct (37-47) % MCV (80-100) fL MCH (25-34) pg MCHC (32-36) g/dL RDW Std Deviation (36.4-46.3) fL RDW Coeff of Anthony (11.5-14.5) % Plt Count (130-400) K/uL MPV (7.4-10.4) fL Immature Gran % (Auto) % Neut % (Auto) % Lymph % (Auto) % [place] % (Auto) % Eos % (Auto) % Baso % (Auto) % Neut # (Auto) (1.4-6.5) K/uL Lymph # (Auto) (1.2-3.4) K/uL [place] # (Auto) (0.11-0.59) K/uL Eos # (Auto) (0-0.5) K/uL Baso # (Auto) (0-0.2) K/uL Immature Gran # (Auto) (0.00-0.02) K/uL PT 10.6 (9.0-12.0) Seconds INR 1.0 (0.9-1.1) APTT 27.4 (21.0-31.0) Seconds PTT Ratio 1.0 D-Dimer (0-500) ug/L FEU Sodium 138 (136-145) mmol/L Potassium 3.8 (3.5-5.1) mmol/L Chloride 104 (98-107) mmol/L Carbon Dioxide 30 (21-32) mmol/L Anion Gap 4.0 (3-11) BUN 9 (7-18) mg/dl Creatinine 0.68 (0.6-1.2) mg/dl Est Cr Clr Drug Dosing Not Reportable Est GFR ( Amer) 114.9 Est GFR (Non-Af Amer) 99.2 BUN/Creatinine Ratio 13.9 (10-20) Glucose 97 (70-99) mg/dl Estimat Average Glucose mg/dl Hemoglobin A1c (4.5-5.6) % Lactate (0.4-2.0) mmol/L Calcium 9.1 (8.5-10.1) mg/dl Magnesium 2.2 (1.8-2.4) mg/dl Total Bilirubin 0.5 (0.2-1) mg/dl AST 11 L (15-37) U/L ALT 23 (12-78) U/L Alkaline Phosphatase 81 (45-117) U/L Troponin I < 0.015 (0-0.045) ng/ml NT-Pro-B Natriuret Pep 30 (0-900) pg/ml Total Protein 8.0 (6.4-8.2) gm/dl Albumin 3.3 L (3.4-5.0) gm/dl Globulin 4.7 H (2.5-4.0) gm/dl Albumin/Globulin Ratio 0.7 L (0.9-2) Triglycerides (0-150) mg/dl Cholesterol (0-200) mg/dl LDL Cholesterol, Calc mg/dl VLDL Cholesterol, Calc mg/dl HDL Cholesterol mg/dl Cholesterol/HDL Ratio Urine Color Urine Appearance (Clear) Urine pH (4.5-7.5) Ur Specific [place] (1.000-1.030) Urine Protein (Negative) Urine Glucose (UA) (Negative) Urine Ketones (Negative) Urine Blood (Negative) Urine Nitrite (Negative) Urine Bilirubin (Negative) Urine Urobilinogen (Negative) Ur Leukocyte Esterase (Negative) COVID-19 Eval Order Covid19 Done at [facility] COVID-19 PCR (Negative) Hepatitis C Ab Screen (Neg) 08/07/20 08/07/20 Range/Units 19:00 19:00 WBC 9.47 (4.8-10.8) K/uL RBC 5.19 (4.2-5.4) M/uL Hgb 14.7 (12.0-16.0) g/dL Hct 45.6 (37-47) % MCV 87.9 (80-100) fL MCH 28.3 (25-34) pg MCHC 32.2 (32-36) g/dL RDW Std Deviation 42.5 (36.4-46.3) fL RDW Coeff of Anthony 13.2 (11.5-14.5) % Plt Count 245 (130-400) K/uL MPV 10.2 (7.4-10.4) fL Immature Gran % (Auto) 0.2 % Neut % (Auto) 63.8 % Lymph % (Auto) 27.1 % [place] % (Auto) 6.7 % Eos % (Auto) 2.1 % Baso % (Auto) 0.1 % Neut # (Auto) 6.04 (1.4-6.5) K/uL Lymph # (Auto) 2.57 (1.2-3.4) K/uL [place] # (Auto) 0.63 H (0.11-0.59) K/uL Eos # (Auto) 0.20 (0-0.5) K/uL Baso # (Auto) 0.01 (0-0.2) K/uL Immature Gran # (Auto) 0.02 (0.00-0.02) K/uL PT (9.0-12.0) Seconds INR (0.9-1.1) APTT (21.0-31.0) Seconds PTT Ratio D-Dimer (0-500) ug/L FEU Sodium (136-145) mmol/L Potassium (3.5-5.1) mmol/L Chloride (98-107) mmol/L Carbon Dioxide (21-32) mmol/L Anion Gap (3-11) BUN (7-18) mg/dl Creatinine (0.6-1.2) mg/dl Est Cr Clr Drug Dosing Est GFR ( Amer) Est GFR (Non-Af Amer) BUN/Creatinine Ratio (10-20) Glucose (70-99) mg/dl Estimat Average Glucose mg/dl Hemoglobin A1c (4.5-5.6) % Lactate 1.0 (0.4-2.0) mmol/L Calcium (8.5-10.1) mg/dl Magnesium (1.8-2.4) mg/dl Total Bilirubin (0.2-1) mg/dl AST (15-37) U/L ALT (12-78) U/L Alkaline Phosphatase (45-117) U/L Troponin I (0-0.045) ng/ml NT-Pro-B Natriuret Pep (0-900) pg/ml Total Protein (6.4-8.2) gm/dl Albumin (3.4-5.0) gm/dl Globulin (2.5-4.0) gm/dl Albumin/Globulin Ratio (0.9-2) Triglycerides (0-150) mg/dl Cholesterol (0-200) mg/dl LDL Cholesterol, Calc mg/dl VLDL Cholesterol, Calc mg/dl HDL Cholesterol mg/dl Cholesterol/HDL Ratio Urine Color Urine Appearance (Clear) Urine pH (4.5-7.5) Ur Specific [place] (1.000-1.030) Urine Protein (Negative) Urine Glucose (UA) (Negative) Urine Ketones (Negative) Urine Blood (Negative) Urine Nitrite (Negative) Urine Bilirubin (Negative) Urine Urobilinogen (Negative) Ur Leukocyte Esterase (Negative) COVID-19 Eval Order COVID-19 PCR (Negative) Hepatitis C Ab Screen (Neg) Diagnostic Findings ECHO COMPLETE No prior study for comparison The study technically limited The left ventricle systolic function is normal Ejection Fraction 55-60% No regional wall motion abnormalities noted There is normal left ventricular wall thickness The right ventricle is normal in size and function No significant valvular disease on technically limited Doppler The inferior vena cava is mildly dilated PG Care Time/CCT Total # of Minutes Spent Total Time Spent with Patient: Total time spent is greater than 50% in coordination of care (as documented) at patient's floor/unit and/or counseling patient: Coding Level of Care Code 79913 Subseq Hosp Care Lvl 3 Diagnoses Hypertension I10 Hypertension type: essential hypertension Shortness of breath R06.02 Acute respiratory failure with hypoxia J96.01 Fluid overload E87.79 Hypervolemia type: other Pre-diabetes R73.03 Obstructive sleep apnea G47.33 Hypokalemia E87.6 (1) Hypertension Hypertension type: essential hypertension Qualified Code(s): I10 - Essential (primary) hypertension (2) Fluid overload Hypervolemia type: other Qualified Code(s): E87.79 - Other fluid overload
[2020-08-08] MEDS ORDERED: OPTIRAY 320 125ml IV ONE (17:30)
--- NOTE | 2020-08-08 17:49 | CT Scan Report ---
CT angio chest PE protocol CT DOSE: 970.30 mGy.cm HISTORY: 55 years-old Female with PE. Acute shortness of breath TECHNIQUE: Multiple CTA images of the chest were obtained after the intravenous administration of 120 ml Optiray 320. Coronal and sagittal MIPS were obtained from the axial data set and were submitted for review. All measurements were obtained according to NASCET criteria. A dose lowering technique w as utilized adhering to the principles of ALARA. COMPARISON: Chest radiograph 08/07/2020, CTA chest 02/24/2014 FINDINGS: CTA: Heart is upper limits of normal in size. No pericardial effusion. No coronary artery calcifications i dentified. The thoracic aorta is normal in course and caliber without aneurysm or dissection. Mild mi xed plaque at the origin of the left subclavian artery without high-grade stenosis. There is no aneur ysm or dissection. There is suboptimal opacification of the pulmonary arterial tree. No central pulmo nary emboli identified. CT CHEST: 12 mm posterior left thyroid nodule. There are a few mildly enlarged lymph nodes including 11 mm righ t hilar lymph node and a 10 mm right subcarinal lymph node. No pneumothorax, pleural effusion or over t pulmonary edema. Minimal dependent subsegmental bibasilar atelectasis. No suspicious pulmonary nodu les or masses. Asymmetric centrilobular groundglass and alveolar opacities are present throughout the right lung, most pronounced in the right upper lobe and superior segment right lower lobe. These fin dings appear similar to the 2013 comparison. Mild associated right-sided bronchial wall thickening. C entral airways are patent. No acute process of the imaged upper abdomen. Hepatic steatosis. Unremarkable soft tissues. The bones are intact. Pectus excavatum. IMPRESSION: 1. No evidence of pulmonary thromboembolic disease. 2. Centrilobular groundglass and airspace opacities are again noted throughout the right lung, greate st in the right upper lobe and superior segment right lower lobe, similar to 2013 comparison. These f indings are again suggestive of an infectious or inflammatory pneumonitis versus hypersensitivity pne umonitis. Mild associated bronchial wall thickening suggests bronchitis. 3. Mild mediastinal and right hilar adenopathy, likely reactive. 4. Hepatic steatosis. ACT 112: Negative or not required by law. The above report was generated using voice recognition software. It may contain grammatical, syntax o r spelling errors. Electronically signed by: Jesus Hollingsworth M.D. 08/08/2020 5:47 PM
[2020-08-08] MEDS: guaiFENesin/DEXTROM SYRUP 100MG/10MG 5ML UDC PO PRN (23:44)
[2020-08-09 05:58] LABS: Basophils # (auto) 0.03 K/uL (0-0.2); Basophils % (auto) 0.4 %; Eosinophils # (auto) 0.34 K/uL (0-0.5); Eosinophils % (auto) 4.2 %; Hematocrit (blood only) 45.5 % (37-47); Hemoglobin 14.9 g/dL (12.0-16.0); Immature Granulocytes # (auto) 0.02 K/uL (0.00-0.02); Immature Granulocytes % (auto) 0.2 %; Lymphocytes # (auto) 2.89 K/uL (1.2-3.4); Lymphocytes % (auto) 35.9 %; Mean Corpuscular Hemoglobin 28.4 pg (25-34); Mean Corpuscular Hgb Conc 32.7 g/dL (32-36); Mean Corpuscular Volume 86.8 fL (80-100); Monocytes # (auto) 0.63 K/uL (0.11-0.59); Monocytes % (auto) 7.8 %; Neutrophils # (auto) 4.14 K/uL (1.4-6.5); Neutrophils % (auto) 51.5 %; Platelet Count 240 K/uL (130-400); RDW Coefficient of Variation 13.3 % (11.5-14.5); RDW Standard Deviation 42.4 fL (36.4-46.3); Red Blood Count 5.24 M/uL (4.2-5.4); White Blood Count 8.05 K/uL (4.8-10.8)
[2020-08-09 06:37] LABS: BUN Creatinine Ratio 17.5 (10-20); Calcium 9.7 mg/dl (8.5-10.1); Creatinine Clr Calc Pharmacy 116.1 ml/min; Est GFR (African American) 99.9; Est GFR (Non-African American) 86.2; Potassium 3.7 mmol/L (3.5-5.1)
[2020-08-09] MEDS: ACETAMINOPHEN 325 MG TAB PO PRN (07:58)
[2020-08-09] MEDS: guaiFENesin/DEXTROM SYRUP 100MG/10MG 5ML UDC PO PRN ×2 (07:59→19:51)
[2020-08-09] MEDS: LOSARTAN POTASSIUM 25 MG TAB PO SCH (08:48)
[2020-08-09] MEDS: hydroCHLOROthiazide 25 MG TAB PO SCH (08:48)
[2020-08-09] MEDS ORDERED: IPRATROPIUM BROMIDE NEB SOLN 0.02% 2.5 ML VIAL NEB STA (12:20)
[2020-08-09] MEDS ORDERED: predniSONE 10 MG TABLET PO ONE (12:30)
[2020-08-09] MEDS ORDERED: LORATADINE 10 MG TAB PO ONE (13:00)
[2020-08-09] MEDS: BENZONATATE 100 MG CAPSULE PO SCH ×2 (13:27→20:41)
[2020-08-09] MEDS ORDERED: IPRATROPIUM BROMIDE NEB SOLN 0.02% 2.5 ML VIAL NEB PRN (14:54)
--- NOTE | 2020-08-09 15:22 | Hospitalist Progress Note ---
Date of Service August 09, 2020 Assessment & Plan (1) Shortness of breath: * 88% on admission, requiring supplemental O2. Trop <0.015. EKG without issue * CXR with cardiomegaly with mild vascular congestion * Given lasix 40mg IV x 1 in ER * ECHO with LV systolic function normal, EF 55/60%, no wma. * Supplemental O2 as needed * Ddimer >500 * CT Chest pending to r/o PE -- NEGATIVE, although appears like a pneumonitis/bronchitis similar to events in 2014 * BCx on admission 10/21 with gram positive cocci clusters, likely contaminant but will follow * Repeat pending * Sputum culture with normal joslyn * Has been afebrile * With wheezing on examination today --> ordered prednisone 30mg, Tessalon pearls for cough, Atrovent neb, claritin for sinus congestion. Ordered guaifenesin prn last evening for cough * Will cover with azithromycin for secondary infection (2) Acute respiratory failure with hypoxia: * Presented with hypoxia with pulse ox 89% requiring oxygen * CT angiogram negative for central PE, and with stable groundglass opacities * Consider outpatient pulmonology referral * Is now weaned off oxygen to room air after 1 dose of Lasix in the ER * CHF does not seem likely as proBNP was normal, preserved EF on echocardiogram * Could be related to infectious process * remains afebrile -- started azithromycin today as above * Nebs, prednisone, tessalon pearls, claritin as above * Continue to monitor -- 95% on RA (3) Hypertension: * Patient with HTN - currently not on medications due to lack of insurance. No evidence of end organ damage or hypertensive crisis at present * HCTZ 25mg added on admission * Added losartan 25mg on 08/08 and BPs much better controlled * May need to utilize low dose lasix given edema/symptoms of CHF despite no significant reduction in EF on ECHO * CM assisting with insurance coverage -- will need f/u with [facility] * Lipid panel wnl (4) Fluid overload: * As above. Patient given Lasix with diuresis * Monitor fluid status * Echo as above (5) Pre-diabetes: * A1c checked for risk stratification, 6.2 * Counseled -- rec diet/exercise * Follow up outpatient with PCP once established again with [facility] (6) Obstructive sleep apnea: * Previous sleep study Aug 2019 with mild sleep apnea/hypopnea with a respiratory event index of 12.7 with significant nocturnal hypoxemia. * Recommended f/u sleep study with CPAP or use of auto CPAP but patient did not ever follow up * Overnight pulse ox with sat dropping into 60s-- patient to discuss with daughter regarding cost and will need follow up outpatient sleep study/cpap * Rx given to CM for overnight O2 (7) Hypokalemia: * K 3.3 -- secondary to HCTZ use. Ordered 20meq PO * RESOLVED Dispo: discharge tomorrow Admission and Anticipated Discharge Date Admission Date: August 08, 2020 Supervising Physician Co-Signing Physician Notes PA Supervision Note: I did not personally see or examine the patient today, but I verified all lama points of MANDY Mejia's assessment and plan with the following exceptions/additions: None Subjective Patient evaluated this morning. Intermittent left sided chest discomfort with coughing. Cough medication helpful when given. Sputum yellowish in color and provided sample last evening. Reviewed CT with pneumonitis/bronchitis type of picture but negative for PE, similar to previous appearance of scan in 2013. She states she developed a pneumonia she believes when that study was done. Endorses sinus congestion and had taken generic claritin in the past. Does note some stuffiness today. Denies shortness of breath, except when coughing or laying flay. BPs have been much better controlled. Discussed overnight pulse ox and patient not sure if she is willing to pay the 100$ for overnight oxygen at discharge and would like to speak with her daughter about this but won't know prior to this evening. Feels more comfortable staying overnight to address wheezing/cough as she had success in the past with tessalon pearls. Review of Systems Review of Systems: All systems reviewed & are unremarkable except as noted in HPI & below Physical Exam Constitutional: WD/WN, vitals as above + obese; no acute distress Eyes: + anicteric sclerae and PERRL ENMT: post nasal drip boggy turbinates Neck: normal visual inspection Respiratory: normal respiratory effort, lungs clear to auscultation Auscultation: + wheezes (expiratory wheezing posterior chest ferrell); no crackles Cardiovascular: Rate/Rhythm: regular rate and regular rhythm Heart Sounds: no gallop, no murmur and no cardiac rub Extremities: + edema (lymphedema "best it has been " per patient) Gastrointestinal (Abdomen): normal bowel sounds, soft, nontender, no hepatosplenomegaly Musculoskeletal: no cyanosis or clubbing, extremities motor strength 5/5 Neurologic: PERRL, EOMI, accommodation nl, no face palsy, no dysarthria Psychiatric: Orientation: alert and oriented x 3 Lymphatic: no cervical or axillary lymphadenopathy Results & Data Results & Data ([facility]) Vital Signs (Past 12 Hours) Vital Signs Temp Pulse Resp BP Pulse Ox 08/09/20 12:40 74 18 98 08/09/20 08:51 36.8 C 108 H 18 138/89 93 Laboratory Results 08/09/20 08/09/20 Range/Units 05:34 05:34 WBC 8.05 (4.8-10.8) K/uL RBC 5.24 (4.2-5.4) M/uL Hgb 14.9 (12.0-16.0) g/dL Hct 45.5 (37-47) % MCV 86.8 (80-100) fL MCH 28.4 (25-34) pg MCHC 32.7 (32-36) g/dL RDW Std Deviation 42.4 (36.4-46.3) fL RDW Coeff of Anthony 13.3 (11.5-14.5) % Plt Count 240 (130-400) K/uL MPV 10.0 (7.4-10.4) fL Immature Gran % (Auto) 0.2 % Neut % (Auto) 51.5 % Lymph % (Auto) 35.9 % [place] % (Auto) 7.8 % Eos % (Auto) 4.2 % Baso % (Auto) 0.4 % Neut # (Auto) 4.14 (1.4-6.5) K/uL Lymph # (Auto) 2.89 (1.2-3.4) K/uL [place] # (Auto) 0.63 H (0.11-0.59) K/uL Eos # (Auto) 0.34 (0-0.5) K/uL Baso # (Auto) 0.03 (0-0.2) K/uL Immature Gran # (Auto) 0.02 (0.00-0.02) K/uL Sodium 138 (136-145) mmol/L Potassium 3.7 (3.5-5.1) mmol/L Chloride 103 (98-107) mmol/L Carbon Dioxide 32 (21-32) mmol/L Anion Gap 3.0 (3-11) BUN 14 (7-18) mg/dl Creatinine 0.78 (0.6-1.2) mg/dl Est Cr Clr Drug Dosing 116.1 ml/min Est GFR ( Amer) 99.9 Est GFR (Non-Af Amer) 86.2 BUN/Creatinine Ratio 17.5 (10-20) Glucose 111 H (70-99) mg/dl Calcium 9.7 (8.5-10.1) mg/dl Specimen Hemolysis Diagnostic Findings CT Angio Chest Protocol IMPRESSION: 1. No evidence of pulmonary thromboembolic disease. 2. Centrilobular groundglass and airspace opacities are again noted throughout the right lung, greatest in the right upper lobe and superior segment right lower lobe, similar to 2014 comparison. These findings are again suggestive of an infectious or inflammatory pneumonitis versus hypersensitivity pneumonitis. Mild associated bronchial wall thickening suggests bronchitis. 3. Mild mediastinal and right hilar adenopathy, likely reactive. 4. Hepatic steatosis. PG Care Time/CCT Total # of Minutes Spent Total Time Spent with Patient: Total time spent is greater than 50% in coordination of care (as documented) at patient's floor/unit and/or counseling patient: Coding Level of Care Code 32477 Subseq Hosp Care Lvl 2 Diagnoses Shortness of breath R06.02 Acute respiratory failure with hypoxia J96.01 Hypertension I10 Hypertension type: essential hypertension Fluid overload E87.79 Hypervolemia type: other Pre-diabetes R73.03 Obstructive sleep apnea G47.33 Hypokalemia E87.6 (1) Hypertension Hypertension type: essential hypertension Qualified Code(s): I10 - Essential (primary) hypertension (2) Fluid overload Hypervolemia type: other Qualified Code(s): E87.79 - Other fluid overload
[2020-08-09] MEDS ORDERED: AZITHROMYCIN 250 MG TAB PO ONE (16:15)
[2020-08-10] MEDS: hydroCHLOROthiazide 25 MG TAB PO SCH (08:55)
[2020-08-10] MEDS: LOSARTAN POTASSIUM 25 MG TAB PO SCH (08:56)
[2020-08-10] MEDS: BENZONATATE 100 MG CAPSULE PO SCH ×2 (08:56→14:46)
[2020-08-10] MEDS ORDERED: AZITHROMYCIN 250 MG TAB PO SCH (09:00)
[2020-08-10] MEDS ORDERED: LORATADINE 10 MG TAB PO SCH (09:00)
[2020-08-10] MEDS ORDERED: predniSONE 10 MG TABLET PO SCH (09:00)
--- NOTE | 2020-08-10 10:02 | Discharge Summary ---
Date of Service August 10, 2020 Admission HPI Per Admitting Provider Ruddy Blankenship is a 55yo C female with history of HTN presenting with SOB. Patient was being seen by a PCP approximately 3 years ago and was being treated for her HTN with Losartan and HCTZ + Klor-Con. She reports that her BPs were well managed on that regimen. Unfortunately she lost her health insurance appx 3 years ago after her significant other . She has been unable to get medications for her BP since. She reports 3 days of progressive SOB and VAZQUEZ as well as some mild chest discomfort. No additional complaints at this time. She denies fevers/chills/nausea/vomiting/diarrhea/constipation. She denies headache/visual changes. No chest discomfort currently. Denies numbness/tingling/weakness. No concerns for Covid-19 exposure. In the ER she was briefly hypoxic to 88% on room air requiring supplemental O2 Er Course: Albuterol. Lasix Admission Exam Per Admitting Provider General: patient resting comfortably, NAD, non-toxic in appearance, AA&O x 4 Skin: warm, dry, intact, no rashes or lesions HEENT: NC/AT, PERRL, EOMI, anicteric sclera, conjunctiva without injection, external ear normal to inspection and nontender, nares patent, moist mucus membranes, dentition intact, no oropharyngeal lesions, neck supple, trachea midline, no LAD, no thyromegaly, no JVD Heart: +S1/S2, regular, no m/r/g Lungs: diminished breath sounds, equal air entry bilaterally, +bibasilar crackles Abd: +BS, soft, NT/ND, no masses/organomegaly/ascites Ext: warm, 2+ pulses in UE/LE bilaterally, no clubbing/cyanosis or edema Neuro: nonfocal, patient AA&O x 4, speech intact, no facial droop, moving all extremities on command with equal strength 5/5 Principal Diagnosis Bronchitis, Fluid Overload Discharge Exam Constitutional WD/WN, vitals as above + obese; no acute distress Eyes + anicteric sclerae and PERRL ENMT Mallampati Class: III boggy turbinates post-nasal drip Neck normal visual inspection Respiratory normal respiratory effort, lungs clear to auscultation Auscultation: + diminished lung sounds; no crackles Cardiovascular Rate/Rhythm: regular rate and regular rhythm Heart Sounds: no gallop, no murmur and no cardiac rub Extremities: + edema (trace/1+ on top of chronic lymphedema) Gastrointestinal (Abdomen) normal bowel sounds, soft, nontender, no hepatosplenomegaly Musculoskeletal no cyanosis or clubbing, extremities motor strength 5/5 Skin warm, dry Neurologic PERRL, EOMI, accommodation nl, no face palsy, no dysarthria Psychiatric A+Ox3, euthymic affect Orientation: alert and oriented x 3 Lymphatic no cervical or axillary lymphadenopathy Discharge Data Allergies Allergy/AdvReac Type Severity Reaction Status Date / Time diphenhydramine Allergy Intermediate HIVES Verified 08/07/20 18:20 mold Allergy Intermediate CONGESTION Verified 08/07/20 18:20 Consultations 08/07/20 21:49 ED Decision to Admit Stat 08/08/20 04:46 Consult Case Management - Discharge Planning Routine Ordered Studies 08/07 CXR 08/08/20 14:45 CT angio chest PE protocol Routine Hospital Course (1) Shortness of breath: Patient admitted later that she did have nasal congestion and stuffy nose/nasal drip prior to development of cough/shortness of breath/chest discomfort. 88% on admission, requiring supplemental O2. Trop <0.015. EKG without issue CXR with cardiomegaly with mild vascular congestion Given lasix 40mg IV x 1 in ER and did not require any further oxygen supplementation ECHO with LV systolic function normal, EF 55/60%, no wma. Normal BNP and unlikely CHF Ddimer >500 CT Chest pending to r/o PE -- NEGATIVE, although appears like a pneumonitis/bronchitis similar to events in 2013 Started and continued azithromycin at discharge for total 5 days Also placed on prednisone 5 day burst, tessalon pearls, nebulizer tx with atrovent (sent rx for albuterol) for cough and wheezing on exam 08/09--> no wheezing on 08/10 following these administrations Also started daily claritin with significant relief of sinus congestion -- rec'd continue at discharge Sputum with heavy normal joslyn BCx on admission 10/21 with gram positive cocci clusters, likely contaminant but will follow Repeat Bcx NGTD on preliminary afebrile --> Hx of SHIRA and untreated HTN since loosing insurance 3 years ago after passed and did not follow up with [facility]. Last winter with outpt sleep study indicating need for CPAP but needed follow up study. Patient initially reported unaware of report findings. Discussed follow up with pulmonology group for outpatient PFTs given likely underlying pulmonary disease ---> Overnight pulse ox done while inpatient with low 68% and set up with O2 HS with rec for repeat sleep study/CPAP Stable on room air prior to discharge (2) Acute respiratory failure with hypoxia: Presented with hypoxia with pulse ox 89% requiring oxygen CT angiogram negative for central PE, and with stable groundglass opacities Rec'd and set up with pulmonology outpatient for PFTs CHF does not seem likely as proBNP was normal, preserved EF on echocardiogram See above (3) Hypertension: Patient with hx HTN - currently not on medications due to lack of insurance. No evidence of end organ damage or hypertensive crisis at present Discharged home on HCTZ 25mg, Losartan 25mg daily with BP 134/91 prior to discharge Did give 1x dose PO lasix prior to d/c given some edema likely from prednisone --> instructed to use compression stockings/fab hose and elevate feet to help with swelling while on this medication Follow up with [facility] for further titrations/management Lipid panel wnl done for risk stratification (4) Fluid overload: As above. Patient given Lasix with diuresis Baseline prior to discharge (5) Pre-diabetes: A1c checked for risk stratification, 6.2 Encouraged diet/exercise Follow up outpatient with PCP once established again with [facility] (6) Obstructive sleep apnea: Previous sleep study Aug 2019 with mild sleep apnea/hypopnea with a respiratory event index of 12.7 with significant nocturnal hypoxemia. Recommended f/u sleep study with CPAP or use of auto CPAP but patient did not ever follow up Overnight pulse ox with sat dropping into 60s-- set up with O2 at night and to have follow up with rec for repeat sleep study outpatient To be delivered to home this evening (7) Hypokalemia: K 3.3 -- secondary to HCTZ use. Ordered 20meq PO RESOLVED once started on ARB as above --> K 3.7 prior to discharge Total Time Total Time Spent Total Time Spent (In Minutes): 90 Discharge Plan Discharge Items Patient Disposition: Home - Self-Care Reason For Visit: HTN, SOB Discharge Diagnosis: Bronchitis, Hypertension Condition on Discharge: Good Goals: You have been hospitalized for an acute medical problem. During your stay at [facility], we have made an effort to correct the problem that brought you to the hospital while keeping you as comfortable as possible. Medications were used to bring your condition under control and your discharge instructions will include directions for any medications you should take after leaving the hospital. Please make sure you see your Primary Care Provider as part of your follow up plan. Activity: Resume your previous activity Non-emergency contact: Primary Care Provider Call non-emergency contact if: you have any medication questions, your symptoms worsen and you have a fever Follow-up/Referrals: Georges Escobedo MD [Physician] - 09/12/20 2:15 pm (1-2 weeks new patient -- will need PFTs and repeat sleep study) PCP,LAUREEN [Primary Care Provider] - (Please call to schedule a follow up appointment with [place] in [facility] [phone]) Diet: Heart Healthy Addtl Attending Provider Instructions: You have been hospitalized for shortness of breath and elevated blood pressure. You had evidence of volume overload on chest xray and were given lasix with improvement and no longer requiring oxygen. An echocardiogram was performed which did not show any signs of congestive heart failure at this time. You were started on blood pressure medication and this will be continued at discharge. They have been checked and should be on the affordable medication list available at [facility]. These prescriptions were sent and should be taken as follows: * Hydrochlorothiazide 25mg by mouth daily * Losartan 25mg by mouth daily Your potassium has remained stable once the losartan was added, and you are not being sent home with potassium supplementation. Your ddimer test was considered positive, and a cat scan of your lungs was performed which was NEGATIVE for pulmonary embolism. It did however, show bronchitis with inflammation and you have been started on prednisone and this will continue for the next 4 days at 30mg by mouth daily. You were started on azithromycin and this will continue as 250mg by mouth for the next 3 days (total of 5 total doses). You have also been given a prescription for Diflucan in case of yeast infection, as discussed if this were to occur. You also are being sent with prescription for albuterol inhaler to utilize as needed for chest tightness/wheezing. It is recommended that you continue daily Claritin to help with sinus congestion. Previous sleep study as an outpatient showed mild sleep apnea and an overnight pulse oximetry study was performed which showed you have episodes of hypoxia and have been set up with oxygen to wear at night but is strongly encouraged to follow up with a repeat sleep study to help qualify for CPAP. As discussed, longstanding untreated sleep apnea can also contribute to hypertension and other complications. You should also discuss at follow up about obtaining outpatient pulmonary function testing to see if you have underlying COPD/asthma. Sputum collected showed normal respiratory joslyn. Your A1c, which measures average blood sugars, was considered to be in the "pre- DM" range and diet/exercise is strongly encouraged and you should have follow up labs to monitor this level. You should follow up with [facility]. Information has been provided and application has been sent for medical assistance. It is recommended that you follow up to manage your blood pressure, follow up with pulmonary function testing/pulmonology/sleep study, and to help with routine health maintenance. Please return to the emergency department with any worsening shortness of breath, chest pain, fever, or for any other symptoms that are concerning for you. It has been a pleasure being a part of the medical team providing for you while you have been in the hospital. Take care! Pending Studies at Discharge: Yes Studies:: Blood cultures -- no growth after 48 hours Stand-Alone Forms: My [facility] Medications and DC Order Prescriptions: New prednisone 10 mg Tablet 30 mg PO QAM 3 Days Qty: 9 RF: 0 azithromycin 250 mg Tablet 250 mg PO QAM 3 Days Qty: 3 RF: 0 dextromethorphan-guaifenesin 10-100 mg/5 mL Syrup 5 ml PO Q6H PRN (Reason: cough) 7 Days Qty: 237 RF: 0 benzonatate [Tessalon Perles] 100 mg Capsule 100 mg PO TID 5 Days Qty: 15 RF: 0 losartan 25 mg Tablet 25 mg PO QAM 30 Days Qty: 30 RF: 1 hydrochlorothiazide 25 mg Tablet 25 mg PO QAM 30 Days Qty: 30 RF: 1 loratadine [Allergy Relief (loratadine)] 10 mg Tablet 10 mg PO QAM 30 Days Qty: 30 RF: 0 albuterol sulfate 90 mcg/actuation aerosol powdr breath activated 2 inh inhalation Q4H PRN (Reason: shortness of breath or wheezing) Qty: 1 RF: 0 Continued acetaminophen [Tylenol Extra Strength] 500 mg Tablet 1,000 mg PO Q6H PRN (Reason: Pain) RF: 0 Discontinued albuterol sulfate [Proventil HFA] 90 mcg/actuation Hfa Aerosol Inhaler 2 puff INHALATION ONCE RF: 0 Mucinex 1,200 mg Tablet Extended Release 12hr 1,200 mg PO BID PRN (Reason: Congestion) RF: 0 Discharge Orders: Discharge Order (Routine); Ordered 08/10/20 Ordered By: Alejandrina Mondragon/Other Patient Handouts: Prediabetes, Diabetes: Meal Planning, A1C Admission Data Admit Date/Time: 08/08/20 16:31 Attending Provider: Skye Eisenberg Admit Provider: Carie Ponce Primary Care Provider: PCP,NO Other Providers: Carie Ponce Other Interventions: Discharge Summary Assessment (RN) Last Done: 08/10/20 15:03 Supervising Physician Co-Signing Physician Notes PA Supervision Note: I personally saw and examined the patient. I verified all lama points and agree with MANDY Mejia with the following exceptions and/or additions: Patient reports feeling much better. Breathing is improved. Still with a dry cough. Wheezing is resolved. No chest pain or shortness of breath. No nausea or vomiting, no abdominal pains. Vitals reviewed Gen: AAOx3, NAD HEENT: Anicteric sclerae, EOMI CV: RRR no mgr nl S1S2 Pulm: CTAB no wcr Abd: +BS soft NT ND no masses or hernias Ext: Mild trace pitting edema in ankles bilaterally Skin: No rashes, warm/dry Neuro:full strength throughout 55-year-old female with morbid obesity, SHIRA, HTN, here with acute bronchitis and acute respiratory failure with hypoxia Much improved with steroids, bronchodilators, and azithromycin. Stable for discharge to home with home O2. Recommend repeat overnight sleep study and CPAP titration. Coding Level of Care Code D/C Day Management >30 mins Diagnoses Shortness of breath R06.02 Acute respiratory failure with hypoxia J96.01 Hypertension I10 Hypertension type: essential hypertension Fluid overload E87.79 Hypervolemia type: other Pre-diabetes R73.03 Obstructive sleep apnea G47.33 Hypokalemia E87.6
[2020-08-10 10:38] LABS: BUN Creatinine Ratio 17.8 (10-20); Calcium 9.4 mg/dl (8.5-10.1); Creatinine Clr Calc Pharmacy 96.3 ml/min; Est GFR (African American) 79.7; Est GFR (Non-African American) 68.8; Potassium 3.7 mmol/L (3.5-5.1)
[2020-08-10 10:47] LABS: Hematocrit (blood only) 44.2 % (37-47); Hemoglobin 14.3 g/dL (12.0-16.0); Mean Corpuscular Hemoglobin 28.1 pg (25-34); Mean Corpuscular Hgb Conc 32.4 g/dL (32-36); Mean Platelet Volume 10.4 fL (7.4-10.4); Platelet Count 233 K/uL (130-400); RDW Coefficient of Variation 13.1 % (11.5-14.5); Red Blood Count 5.08 M/uL (4.2-5.4); White Blood Count 12.08 K/uL (4.8-10.8)
[2020-08-10] MEDS ORDERED: FUROSEMIDE 40 MG TAB PO STA (11:59)
[2020-08-10] MEDS ORDERED: POTASSIUM CHLORIDE 20 MEQ TABCR PO STA (11:59)
== END 2020-08-10 16:35 | disposition home or self-care (01) | DRG 202 ==
LOC: ED 17:22 → 3E 17:22 → SUATTDRO 23:22 → 3E 08-08 00:10